=== PATIENT | female | born 1975 | race Caucasian/White ===

== ENCOUNTER 2018-05-18 13:09 | Emergency (ER) | payer OTHER ==
[2018-05-18 13:39] VITALS: BP 124/60
[2018-05-18] MEDS ORDERED: NORCO 5/325 PO STA (18:00)
[2018-05-18 18:13] LABS: Hematocrit 35.8 % (30.3-42.9); Hemoglobin 11.5 gm/dl (10.1-14.3); Mean Corpuscular HGB Conc 32 % (30-34); Mean Corpuscular Volume 83 fl (79-97); Platelet Count 294 K/mm3 (140-440); Red Blood Count 4.34 M/mm3 (3.65-5.03); Red Cell Distribution Width 13.7 % (13.2-15.2)
[2018-05-18 18:49] LABS: Alanine Aminotransferase 12 units/L (7-56); Albumin 3.9 g/dL (3.9-5); BUN/Creatinine Ratio 14; Blood Urea Nitrogen 7 mg/dL (7-17); Calcium 8.8 mg/dL (8.4-10.2); Hemolysis Index 7
[2018-05-18 19:13] LABS: Basophils % (Manual) 0 % (0.0-1.8); Eosinophils % (Manual) 0 % (0.0-4.3); Monocytes % (Manual) 4 % (0.0-7.3); Total Cells Counted 100
[2018-05-18 19:15] LABS: Anisocytosis 1+
--- NOTE | 2018-05-18 20:22 | XRay Report ---
FINAL REPORT PROCEDURE: Chest. TECHNIQUE: PA and lateral views. HISTORY: Chest pain. COMPARISON: No prior studies are available for comparison. FINDINGS: The heart and mediastinum appear normal. The lungs are clear and well expanded. There are no pleural effusions. The soft tissues and regional skeleton are unremarkable. IMPRESSION: Normal study.
--- NOTE | 2018-05-19 00:53 | Emergency Department Report ---
ED Chest Pain HPI - General Chief Complaint: Chest Pain Stated Complaint: CHEST PAIN Time Seen by Provider: 05/18/18 17:23 Source: patient, family Mode of arrival: Wheelchair Limitations: No Limitations - History of Present Illness Initial Comments: 43-year-old female presents emergency department complaining of onset of chest pain which occurred earlier today. It was. She will walk her kids to school and with medical pain which is associated with some nausea and episodes of vomiting as well as right ear pain. She reports no cough or shortness of breath. No leg pain, calf pain or swelling. The pain chest with a burning fashion with some sharp sharp shooting sensation that radiated around her rib cage. -: Gradual Pain Location: left chest, right chest Pain Radiation: back Severity: mild Severity scale (0 -10): 10 Consistency: constant Improves With: nothing Worsens With: nothing Context: other () re: denies: nausea, vomting, dyspnea, sense of impending doom - Related Data Allergies Allergy/AdvReac Type Severity Reaction Status Date / Time No Known Allergies Allergy Verified 05/18/18 13:38 Heart Score - HEART Score History: Slightly suspicious EKG: Normal Age: < 45 Risk factors: No known risk factors Troponin: < normal limit HEART Score: 0 ED Review of Systems ROS: Stated complaint: CHEST PAIN Other details as noted in HPI Constitutional: denies: chills, fever Eyes: denies: eye pain, eye discharge, vision change ENT: denies: ear pain, throat pain Respiratory: denies: cough, shortness of breath, wheezing Cardiovascular: denies: chest pain, palpitations Endocrine: no symptoms reported Gastrointestinal: denies: abdominal pain, nausea, diarrhea Genitourinary: denies: urgency, dysuria, discharge Musculoskeletal: denies: back pain, joint swelling, arthralgia Skin: denies: rash, lesions Neurological: denies: headache, weakness, paresthesias Psychiatric: denies: anxiety, depression Hematological/Lymphatic: denies: easy bleeding, easy bruising ED Past Medical Hx - Past Medical History Previous Medical History?: No - Surgical History Past Surgical History?: No - Social History Smoking Status: Never Smoker ED Physical Exam - General Limitations: No Limitations General appearance: alert, in no apparent distress - Head Head exam: Present: atraumatic, normocephalic - Eye Eye exam: Present: normal appearance, PERRL, EOMI Pupils: Present: normal accommodation - ENT ENT exam: Present: normal exam, normal orophraynx, mucous membranes moist - Neck Neck exam: Present: normal inspection, full ROM. Absent: tenderness, lymphadenopathy - Respiratory Respiratory exam: Present: normal lung sounds bilaterally, chest wall tenderness (there is tenderness to her chest wall with palpation of the rib border.). Absent: respiratory distress, wheezes, rales, accessory muscle use, decreased breath sounds - Cardiovascular Cardiovascular Exam: Present: regular rate, normal rhythm. Absent: systolic murmur, diastolic murmur, rubs, gallop - GI/Abdominal GI/Abdominal exam: Present: soft, normal bowel sounds. Absent: tenderness, rebound - Extremities Exam Extremities exam: Present: normal inspection, full ROM, normal capillary refill - Back Exam Back exam: Present: normal inspection. Absent: CVA tenderness (R), CVA tenderness (L) - Neurological Exam Neurological exam: Present: alert, oriented X3, CN II-XII intact, normal gait - Psychiatric Psychiatric exam: Present: normal affect, normal mood. Absent: anxious, flat affect, manic - Skin Skin exam: Present: warm, dry, intact, normal color. Absent: rash, cyanosis, d iaphoretic, erythema, petechiae ED Course Vital Signs 05/18/18 05/19/18 13:21 01:20 Temperature 98.5 F Pulse Rate 86 92 H Respiratory 20 16 Rate Blood Pressure 124/60 O2 Sat by Pulse 100 99 Oximetry CRIS score - Cris Score Age > 65: (0) No Aspirin use within the Past 7 Days: (0) No 3 or more CAD Risk Factors: (0) No 2 or more Angina events in past 24 hrs: (0) No Known CAD with more than 50% Stenosis: (0) No Elevated Cardiac Markers: (0) No ST Deviation Greater than 0.5mm: (0) No CRIS Score: 0 ED Medical Decision Making - Lab Data Result diagrams: 05/18/18 17:41 05/18/18 17:41 - Radiology Data Radiology results: report reviewed - Medical Decision Making 43-year-old female with nausea, chest aches to the rib area, left and right associated with some mild burning. Also having some symptoms of fatigue and fever. Sensation suggestive of a viral syndrome presentation. Cardiac evaluation was negative. She does have no exam findings to suggest any DVT. Chest chest x-ray does not show any pneumonia or any normal thorax is. Discussed all the findings with the patient and her significant other who was present during the evaluation. They are aware of the findings her . They did state he be to follow with an [facility] for further monitoring and evaluation. I advised him that he may need to follow-up with cardiology for chest pain continued to wax and wane, although this appeared to be of a non-car cardiac etiology. The did express and understanding is a significant other was fluent Italian Critical care attestation.: If time is entered above; I have spent that time in minutes in the direct care of this critically ill patient, excluding procedure time. ED Disposition Clinical Impression: Chest pain, Disposition: DC-01 TO HOME OR SELFCARE Is pt being admited?: No Does the pt Need Aspirin: No Condition: Stable Instructions: Chest Pain (ED), Costochondritis (ED) Referrals: AMBER GILMAN MD [Primary Care Provider] - 3-5 Days SHANNON CASTAÑEDA MD [Staff Physician] - 3-5 Days Forms: Accompanied Note, Work/School Release Form(ED)
== END 2018-05-19 01:20 | disposition home or self-care (01) ==
LOC: ED 13:09
DX: O26.899 Other specified pregnancy related conditions, unspecified trimester (principal); R07.89 Other chest pain; O21.8 Other vomiting complicating pregnancy; R11.0 Nausea
CPT/HCPCS: 36415; 71046; 80053; 84484; 84703; 85007; 85025; 93005; 93010